=== PATIENT | female | born 1960 | race Caucasian/White ===

== ENCOUNTER 2017-09-16 13:05 | Emergency (ER) | payer OTHER ==
[2017-09-16] MEDS ORDERED: BUTALB/ACETAMINOPHEN/CAFFEINE 1 TAB EACH PO ONE (13:29)
--- NOTE | 2017-09-16 14:16 | RADIOLOGY REPORT (SQ) ---
EXAM DESCRIPTION: CT HEAD WITHOUT COMPLETED DATE/TIME: 09/16/2017 2:08 pm REASON FOR STUDY: pain COMPARISON: None. TECHNIQUE: Axial images acquired through the brain without intravenous contrast. Images reviewed wi th bone, brain and subdural windows. Images stored on PACS. All CT scanners at this facility use dose modulation, iterative reconstruction, and/or weight based d osing when appropriate to reduce radiation dose to as low as reasonably achievable (ALARA). [facility]: Dose Right [facility]: CareDose [facility]: Dose Right [facility]: Teradose 4D [facility]: Smart Think Realtime RADIATION DOSE: CT Rad equipment meets quality standard of care and radiation dose reduction techniq ues were employed. CTDIvol: 49.0 mGy. DLP: 783 mGy-cm. mGy. LIMITATIONS: None. FINDINGS: VENTRICLES: Normal size and contour. CEREBRUM: No masses. No hemorrhage. No midline shift. No evidence for acute infarction. Normal gra y/white matter differentiation. No areas of low density in the white matter. CEREBELLUM: No masses. No hemorrhage. No alteration of density. No evidence for acute infarction. EXTRAAXIAL SPACES: No fluid collections. No masses. ORBITS AND GLOBE: No intra- or extraconal masses. Normal contour of globe without masses. CALVARIUM: No fracture. PARANASAL SINUSES: Opacified left sphenoid sinus and left posterior ethmoid air cells from sinusitis. SOFT TISSUES: No mass or hematoma. OTHER: No other significant finding. IMPRESSION: Opacified left sphenoid sinus and posterior ethmoid air cells from sinusitis. No acute intracranial changes EVIDENCE OF ACUTE STROKE: NO. COMMENT: Quality ID # [id number]: Final reports with documentation of one or more dose reduction techniques (e.g., Automated exposure control, adjustment of the mA and/or kV according to patient size, use of iterative reconstruction technique) TECHNICAL DOCUMENTATION: JOB ID: [id number] [employer]- All Rights Reserved
--- NOTE | 2017-09-16 15:13 | ER Document Report ---
ED General - General Chief Complaint: Headache Stated Complaint: HEADACHE Time Seen by Provider: 09/16/17 13:29 Mode of Arrival: Ambulatory Information source: Patient Notes: Patient states she has severe headache. Has been going on for approximately 2 weeks. It is located in the frontal and bilateral temporal areas. Nothing makes it better or worse. It is constant severe and throbbing. It does radiate to the back of her head. She has had some nausea but no vomiting or diarrhea. She is now on her second antibiotic with no change of the symptoms. She states she is being treated for sinusitis. States she still has congestion. TRAVEL OUTSIDE OF THE [place] IN LAST 30 DAYS: No - Related Data Allergies/Adverse Reactions: No Known Allergies Allergy (Verified 09/16/17 13:16) Home Medications: Current Home Medications Doxycycline Hyclate 100 mg PO DAILY 09/16/17 [History] Prednisone [Prednisone] 1 tab PO DAILY 09/16/17 [History] Valsartan/Hydrochlorothiazide [Valsartan-Hctz 160-12.5 mg Tab] 1 tab PO DAILY [History] Past Medical History - General Information source: Patient - Social History Smoking Status: Never Smoker Chew tobacco use (# tins/day): No Frequency of alcohol use: None Drug Abuse: None Family History: Reviewed & Not Pertinent Patient has suicidal ideation: No Patient has homicidal ideation: No - Past Medical History Cardiac Medical History: Reports: Hx Hypertension Renal/ Medical History: Denies: Hx Peritoneal Dialysis Past Surgical History: Reports: Hx Genitourinary Surgery, Hx Gynecologic Surgery - oopherectomy, Hx Hysterectomy, Hx Orthopedic Surgery Review of Systems - Review of Systems Constitutional: Malaise, Weakness Respiratory: Cough. denies: Short of breath Gastrointestinal: Nausea Genitourinary: denies: Dysuria, Frequency -: Yes All other systems reviewed and negative Physical Exam - Vital signs Vitals: Temp Pulse Resp BP Pulse Ox 98.6 F 93 16 159/88 H 98 09/16/17 13:15 09/16/17 13:15 09/16/17 13:15 09/16/17 13:15 09/16/17 13:15 Interpretation: Hypertensive - General General appearance: Appears well, Alert - HEENT Head: Normocephalic, Atraumatic Eyes: Normal Pupils: PERRL - Respiratory Respiratory status: No respiratory distress Chest status: Nontender Breath sounds: Normal Chest palpation: Normal - Cardiovascular Rhythm: Regular Heart sounds: Normal auscultation Murmur: No - Abdominal Inspection: Normal Distension: No distension Bowel sounds: Normal Tenderness: Nontender Organomegaly: No organomegaly - Back Back: Normal, Nontender - Extremities General upper extremity: Normal inspection, Nontender, Normal color, Normal ROM , Normal temperature General lower extremity: Normal inspection, Nontender, Normal color, Normal ROM , Normal temperature, Normal weight bearing. No: Farzana's sign - Neurological Neuro grossly intact: Yes Cognition: Normal Orientation: AAOx4 [place] Coma Scale Eye Opening: Spontaneous [place] Angel Coma Scale Verbal: Oriented [place] Coma Scale Motor: Obeys Commands [place] Coma Scale Total: 15 Speech: Normal Cranial nerves: Normal Cerebellar coordination: Normal Motor strength normal: LUE, RUE, LLE, RLE Additional motor exam normals: Equal shrimp cleaner. No: Pronator drift Sensory: Normal - Psychological Associated symptoms: Normal affect, Normal mood - Skin Skin Temperature: Warm Skin Moisture: Dry Skin Color: Normal Course - Vital Signs Vital signs: Temp Pulse Resp BP Pulse Ox 98.6 F 93 16 159/88 H 98 09/16/17 13:15 09/16/17 13:15 09/16/17 13:15 09/16/17 13:15 09/16/17 13:15 - Diagnostic Test Radiology reviewed: Image reviewed, Reports reviewed - Patient CT scan was reviewed by me. She has sphenoid sinusitis. Discharge - Discharge Clinical Impression: Sphenoid sinusitis Qualifiers: Chronicity: acute Recurrence: non-recurrent Qualified Code(s): J01.30 - Acute sphenoidal sinusitis, unspecified Condition: Stable Disposition: HOME, SELF-CARE Instructions: Headache ([facility]), Sinusitis ([facility]) Additional Instructions: Your blood pressure is elevated. Please have this rechecked by your doctor within 1 week. Please stop doxycycline. Please start the Augmentin. Prescriptions: Amoxicillin/Potassium Clav [Augmentin 875-125 Tablet] 1 each PO BID 14 Days #28 tablet Butalb/Acetaminophen/Caffeine [Fioricet (50-325-40 mg) Tablet] 1 - 2 tab PO Q4H #20 tab Forms: Elevated Blood Pressure, Return to Work Referrals: NELA TSANG MD [COMMUNITY BASED STAFF] - Follow up as needed
[2017-09-16 15:19] VITALS: BP 155/80
== END 2017-09-16 15:19 | disposition home or self-care (01) ==
LOC: ER 13:05
DX: J01.30 Acute sphenoidal sinusitis, unspecified (principal); R51 Headache; R11.0 Nausea; Z79.899 Other long term (current) drug therapy
CPT/HCPCS: 99284; 70450; J3490